=== PATIENT | male | born 1965 | race Two or more races ===

== ENCOUNTER → 2021-03-19 | Day surgery (SDC) | payer MEDICAID ==
[~2021-03-19] VITALS: Ht 182.9 cm; Wt 108.9 kg
[~2021-03-19] MED LIST: ATEN-60 PO; ATOR80TA PO; GLIM4TAB42 PO; GLYCOPYRROLATE 0.2 MG/ML 1ML VIAL ONE; HYDR-4833 PO; HYDROmorphone HCL 2 MG/ML VL IV PRN; INSU1INJ19 SC; LISI40TA11 PO; METF-372 PO; MIDAZOLAM HCL 2MG/2ML 2ml VIAL (1mg/ml) ONE; NEOSTIGMINE 1 MG/ML INJ (10mg/10ML VIAL) ONE; NIFE-3 PO; ONDANSETRON HCL 4 MG/2 ML VIAL IV PRN; PROPOFOL 10 MG/ML 20 ML IV ONE; SUCCINYLCHOLINE CHLORIDE 20 MG/ML 10ML VIAL IV ONE; ceFAZolin 1GM/50ML 50 ML IV ONE; fentaNYL CITRATE 100 MCG/2 ML VL ONE
[2021-03-19 11:55] VITALS: BP 117/60
== END | disposition home or self-care (01) ==
LOC: SUR 07:29
PROVIDERS: ATTEND Urology
DX: T83.192A Other mechanical complication of indwelling ureteral stent, initial encounter (principal); N20.0 Calculus of kidney; I10 Essential (primary) hypertension; E11.9 Type 2 diabetes mellitus without complications; Z90.49 Acquired absence of other specified parts of digestive tract; Z98.890 Other specified postprocedural states; Z79.899 Other long term (current) drug therapy; Z79.84 Long term (current) use of oral hypoglycemic drugs; Z20.822 Contact with and (suspected) exposure to COVID-19; Y82.8 Other medical devices associated with adverse incidents
CPT/HCPCS: 50590; 52310; 82962; C1769; J0330; J0690; J2250; J2704; J3010; U0003; A4565